=== PATIENT | female | born 1945 | race Caucasian/White ===

== ENCOUNTER → 2025-03-09 11:56 | Outpatient (CLI) | payer SELFPAY ==
[2025-03-09 13:22] LABS: COVID-19 CEPHEID 4-PLEX PCR Negative (Negative); Influenza A - CEPHEID Flu A NEGATIVE (NEGATIVE); Influenza B - CEPHEID Flu B NEGATIVE (NEGATIVE)
== END ==
PROVIDERS: Visit Provider Chiropractor
DX: J02.9 Acute pharyngitis, unspecified (principal); R05.1 Acute cough
CPT/HCPCS: 87070; 87637